=== PATIENT | female | born 2000 | race Caucasian/White ===

== ENCOUNTER 2019-10-23 13:29 | Outpatient (CLI) | payer MEDICAID, SELFPAY ==
[2019-10-23 13:50] VITALS: BMI 19.8
[2019-10-23 14:13] VITALS: BP 139/72; PULSE 111; RESP 18; TEMP 36.9; O2SAT 100; BMI 19.8
[2019-10-23 14:18] LABS: Microscopic, Urine URINE MICROSCOPIC (MICROSCOPIC)
[2019-10-23 14:33] LABS: Appearance,Urine SL CLOUDY (Clear); Blood, Urine Negative (Negative); Color,Urine DK YELLOW (Yellow); Glucose,Urine (UA) Negative (Negative); Ketones,Urine Negative (Negative); Leukocyte Esterase,Urine 2+ (Negative); Nitrate,Urine Negative (Negative); Protein,Urine Negative (Negative); Specific Gravity, Urine 1.015 (1.005-1.030)
[2019-10-23 14:39] LABS: Bilirubin,Urine Negative (Negative)
[2019-10-23 14:44] LABS: Amphetamine/Metha Screen,Urine Negative ng/ml (<1000); Benzodiazepines Screen,Urine Negative ng/ml (<200)
[2019-10-23 14:45] LABS: Barbiturates Screen,Urine Negative ng/ml (<200)
[2019-10-23 14:46] LABS: Cannabinoid Screen,Urine Negative ng/ml (<50); Cocaine Screen,Urine Negative ng/ml (<300)
[2019-10-23 14:47] LABS: Methadone Screen,Urine Negative ng/ml (<300)
[2019-10-23 14:48] LABS: Opiate Screen,Urine Negative ng/ml (<300); Phencyclidine Screen,Urine Negative ng/ml (<25)
[2019-10-23 15:05] LABS: Bacteria,Urine 3+ /lpf; Mucus,Urine Trace /lpf; WBC,Urine Occasional #/hpf (0-3)
== END 2019-10-23 15:26 | disposition home or self-care (01) ==
LOC: OBOUT 13:41 → OB 13:41
PROVIDERS: Obstetrics & Gynecology; PCP Obstetrics & Gynecology; Visit Provider Obstetrics & Gynecology
DX: O36.8120 Decreased fetal movements, second trimester, not applicable or unspecified (principal); Z3A.18 18 weeks gestation of pregnancy
CPT/HCPCS: 59025; 80305; 81001; 87086; G0463

== ENCOUNTER 2019-11-20 05:58 | Outpatient (CLI) | payer MEDICAID, SELFPAY ==
[2019-11-20 07:50] VITALS: BMI 28.7
[2019-11-20 08:16] LABS: Microscopic, Urine URINE MICROSCOPIC (MICROSCOPIC)
[2019-11-20 08:17] LABS: Appearance,Urine CLEAR (Clear); Blood, Urine Negative (Negative); Color,Urine YELLOW (Yellow); Glucose,Urine (UA) Negative (Negative); Ketones,Urine Negative (Negative); Leukocyte Esterase,Urine TRACE (Negative); Nitrate,Urine Negative (Negative); Protein,Urine Negative (Negative); Specific Gravity, Urine >= 1.030 (1.005-1.030)
[2019-11-20 08:20] LABS: Amphetamine/Metha Screen,Urine Negative ng/ml (<1000); Barbiturates Screen,Urine Negative ng/ml (<200); Benzodiazepines Screen,Urine Negative ng/ml (<200); Cannabinoid Screen,Urine Negative ng/ml (<50); Cocaine Screen,Urine Negative ng/ml (<300); Methadone Screen,Urine Negative ng/ml (<300); Opiate Screen,Urine Negative ng/ml (<300); Phencyclidine Screen,Urine Negative ng/ml (<25)
--- NOTE | 2019-11-20 08:21 | [facility].ACPN2 ---
Internal Medicine - PN: Subj *Date: 11/20/19 *Time: 08:21 Interval history: She is a 19-year-old 1 para 0 at 22 weeks with twins. She complains of contractions. They started about 3:00 this morning. She denies any fluid loss. Her urine looked concentrated. We will await the results of her urine. Her nonstress test shows that she is carrillo every few minutes. Exam I & O for Last 24 hours: Intake & Output 11/17/19 11/18/19 11/19/19 11/20/19 11:59 11:59 11:59 11:59 Weight 189 lb - Constitutional no acute distress - *Routine HEENT Exam Head: Present: normocephalic Eye: Present: EOMI, PERRL ENT: Present: mucous membranes moist Assessment and Plan (1) Twin Current visit: Yes Status: Acute Category: Medical Code(s): O30.009 - Twin , unspecified number of placenta and unspecified number of amniotic sacs, unspecified trimester (2) labor in second trimester Current visit: Yes Status: Acute Category: Medical Code(s): O60.02 - labor without delivery, second trimester - Assessment and plan all Dx Assessment and Plan for all problems:: We are awaiting the results of her urinalysis. We will go ahead and give her IV fluids to see if this settles her contractions. Her cervix has not changed. We will plan to send her home later on this morning.
[2019-11-20 08:35] LABS: Bilirubin,Urine Negative (Negative)
[2019-11-20 08:36] LABS: Amorphous Sediment,Urine 1+ /lpf; Bacteria,Urine 1+ /lpf
[2019-11-20 09:25] VITALS: BP 112/69; PULSE 80; RESP 18; O2SAT 98; BMI 28.5
== END 2019-11-20 09:40 | disposition home or self-care (01) ==
LOC: OBOUT 05:59 → OB 06:00
PROVIDERS: Visit Provider Nurse Practitioner Obstetrics & Gynecology
DX: O26.892 Other specified pregnancy related conditions, second trimester (principal); Z3A.22 22 weeks gestation of pregnancy
CPT/HCPCS: 59025; 80305; 81001; 96365; G0463